=== PATIENT | male | born 1985 | race Caucasian/White ===

== ENCOUNTER 2016-12-11 12:57 | Emergency (ER) | payer OTHER, SELFPAY ==
--- NOTE | 2016-12-11 14:39 | EDDOCDS ---
Nurse's Notes [facility] Name: Amrit Nuñez Age: 30 yrs Sex: Male : 1985 Arrival Date: 12/11/2016 Time: 12:57 Bed Triage 3 Private MD: No Pcp Diagnosis: Low back pain Presentation: 12/11 13:03 Presenting complaint: Patient states: pain in low back - no known injury - ongoing pml since yesterday. Acute neurological deficits are not present. Mechanism of Injury: No Mechanism of Injury. Adult Sepsis Screening: The patient does not have new or worsening altered mentation. Patient's respiratory rate is less than 22. Systolic blood pressure is greater than 100. Patient has a qSOFA score of 0- Negative Sepsis Screen. Suicide/Homicide risk assessment- the patient denies having any suicidal and/or homicidal ideations and does not present with any other emotional, behavioral or mental health complaints. Status: Patient is not a facility service associate or dependent. Transition of care: patient was not received from another setting of care. 13:03 Acuity: VALERY Level 4 pml 13:03 Method Of Arrival: Walkin/Carried/Asstd pml Triage Assessment: 13:04 General: Appears uncomfortable. Pain: Location: right scapular area and right low back pml Pain currently is 7 out of 10 on a pain scale. HIV screening NA for this visit Offered previously. Musculoskeletal: Circulation, motion, and sensation intact. Historical: - Allergies: no known allergies; - Home Meds: 1. none - PMHx: none; - PSHx: Hernia repair; Tonsillectomy; Adenoidectomy; Knee surgery- Left; - Social history: Smoking status: Patient uses tobacco products, heavy tobacco smoker. No barriers to communication noted, The patient speaks fluent Hungarian, Speaks appropriately for age. - Family history: Not pertinent. - : The pt / caregiver states he / she is not on anticoagulants. Home medication list is obtained from the patient. - Exposure Risk Screening:: None identified. Screenin:38 Screening information is obtained from the patient. Fall risk: No risks identified. ml6 Assistance ADL's: requires no assistance with activities of daily living. Abuse/DV Screen: The patient / caregiver reports he/she is: not in a situation that causes fear, pain or injury. Nutritional screening: No deficits noted. Advance Directives: Currently, there is no health care proxy. home support is adequate. Assessment: 14:37 General: Appears in no apparent distress, comfortable. Pain: Denies pain. Neurological: ml6 No deficits noted. Level of Consciousness is awake, alert, Oriented to person, place, time. Cardiovascular: No deficits noted. Capillary refill < 3 seconds is brisk Heart tones S1 S2 present Edema is absent. Pulses are all present. Respiratory: No deficits noted. Airway is patent Respiratory effort is even, unlabored, Respiratory pattern is regular, symmetrical, Breath sounds are clear bilaterally. GI: No deficits noted. Abdomen is flat, non- distended Bowel sounds present X 4 quads. Vital Signs: 12:59 BP 156 / 82 RA Sitting (auto/reg); Pulse 88; Resp 18; Temp 98.0(O); Pulse Ox 100% on jrd R/A; Weight 108.86 kg (R); Height 5 ft. 10 in. (177.80 cm) (R); Pain 6/10; 14:37 ml6 12:59 Body Mass Index 34.44 (108.86 kg, 177.80 cm) jrd 14:37 patient refused ml6 Vitals: 12:59 Log In Time: December 11, 2016 at 12:45. jrd ED Course: 12:57 Patient visited by Bishnu Wagner PCA. jrd 12:57 Patient moved to Waiting jrd 12:58 No Pcp is Private Physician. jrd 13:00 Patient visited by Bishnu Wagner PCA. jrd 13:00 Patient moved to Pre RCE jrd 13:04 Triage Initiated pml 13:05 Patient visited by Debi Arevalo RN. pml 13:49 Patient moved to Triage 3 ar3 14:18 [facility] Payment Agreement was scanned into [employer] and attached to record. lg 14:21 Alexandru Traylor FNP is PHCP. ke 14:21 Patient visited by Alexandru Traylor FNP. ke 14:21 Patient visited by Alexandru Traylor FNP. ke 14:30 [facility] is Referral Physician. ke 14:38 The patient / caregiver is instructed regarding the plan of care and ED course. ml6 14:38 No IV's were initiated during this patient's visit. No procedures done that require ml6 assistance. Order Results: There are currently no results for this order. Outcome: 14:31 Discharge ordered by Provider. 14:38 Discharge Assessment: patient administered narcotics - yes. Pt provided with safe ml6 discharge. The following High Risk Discharge criteria are identified: None. Discharged to home ambulatory, with significant other. Condition: improved. Discharge instructions given to patient, Instructed on discharge instructions, follow up and referral plans. medication usage, Demonstrated understanding of instructions, medications, Pt was receptive of discharge instructions/ teaching. Prescriptions given X 1. No special radiology studies were completed. Property :Personal belongings accompany Pt. 14:39 Patient left the ED. ml6 Signatures: Brian Somers, Reg Reg lg Alexandru Traylor, RN ACLS RN ACLS Tom Martinez RN RN ml6 Chayito Mendoza, BRUSH CLEANER BRUSH CLEANER ar3 Debi Arevalo,RN RN pml Bishnu Wagner, BRUSH CLEANER BRUSH CLEANER jrd MTDD
--- NOTE | 2016-12-11 14:39 | EDDOCDS ---
Physician Documentation [facility] Name: Amrit Nuñez Age: 30 yrs Sex: Male : 1985 Arrival Date: 12/11/2016 Time: 12:57 Bed Triage 3 Private MD: No Pcp Disposition: 12/11/16 14:31 Discharged to Home/Self Care. Impression: Low back pain. - Condition is Stable. - Discharge Instructions: Back Pain, Adult. - Prescriptions for Ibuprofen 600 mg Oral Tablet - take 1 tablet by ORAL route every 6 hours As needed take with food; 30 tablet. Cyclobenzaprine 10 mg Oral Tablet - take 1 tablet by ORAL route 3 times per day As needed; 15 tablet. - Medication Reconciliation, Local Pharmacy Hours form. - [facility] up: [facility]; When: Call to arrange an appointment; Reason: Continuance of care. - Problem is new. - Symptoms are unchanged. - Notes: ice 20 min an hour limit bending and lifting Historical: - Allergies: no known allergies; - Home Meds: 1. none - PMHx: none; - PSHx: Hernia repair; Tonsillectomy; Adenoidectomy; Knee surgery- Left; - Social history: Smoking status: Patient uses tobacco products, heavy tobacco smoker. No barriers to communication noted, The patient speaks fluent Lao, Speaks appropriately for age. - Family history: Not pertinent. - : The pt / caregiver states he / she is not on anticoagulants. Home medication list is obtained from the patient. - Exposure Risk Screening:: None identified. Vital Signs: 12/11 12:59 BP 156 / 82 RA Sitting (auto/reg); Pulse 88; Resp 18; Temp 98.0(O); Pulse Ox 100% on jrd R/A; Weight 108.86 kg / 240 lbs (R); Height 5 ft. 10 in. (177.80 cm) (R); Pain 6/10; 14:37 ml6 12:59 Body Mass Index 34.44 (108.86 kg, 177.80 cm) jrd 14:37 patient refused ml6 MDM: 14:18 [facility] Payment Agreement was scanned into [employer] and attached to record. 14:23 Financial registration complete. Signatures: Brian Somers, Reg Reg Alexandru Traylor, BODY JOINER BODY JOINER Tom Martinez, RN RN ml6 Debi Arevalo RN RN pml The chart was reviewed and I authenticate all verbal orders and agree with the evaluation and treatment provided.Attachments: 14:18 [facility] Payment Agreement lg MTDD
--- NOTE | 2016-12-13 15:39 | EDDOCDS ---
Physician Documentation [facility] Name: Amrit Nuñez Age: 30 yrs Sex: Male : 1985 Arrival Date: 12/11/2016 Time: 12:57 Bed Triage 3 Private MD: No Pcp Disposition: 12/11/16 14:31 Discharged to Home/Self Care. Impression: Low back pain. - Condition is Stable. - Discharge Instructions: Back Pain, Adult. - Prescriptions for Ibuprofen 600 mg Oral Tablet - take 1 tablet by ORAL route every 6 hours As needed take with food; 30 tablet. Cyclobenzaprine 10 mg Oral Tablet - take 1 tablet by ORAL route 3 times per day As needed; 15 tablet. - Medication Reconciliation, Local Pharmacy Hours form. - Follow up: [facility]; When: Call to arrange an appointment; Reason: Continuance of care. - Problem is new. - Symptoms are unchanged. - Notes: ice 20 min an hour limit bending and lifting Historical: - Allergies: no known allergies; - Home Meds: 1. none - PMHx: none; - PSHx: Hernia repair; Tonsillectomy; Adenoidectomy; Knee surgery- Left; - Social history: Smoking status: Patient uses tobacco products, heavy tobacco smoker. No barriers to communication noted, The patient speaks fluent Russian, Speaks appropriately for age. - Family history: Not pertinent. - : The pt / caregiver states he / she is not on anticoagulants. Home medication list is obtained from the patient. - Exposure Risk Screening:: None identified. Vital Signs: 12/11 12:59 BP 156 / 82 RA Sitting (auto/reg); Pulse 88; Resp 18; Temp 98.0(O); Pulse Ox 100% on jrd R/A; Weight 108.86 kg / 240 lbs (R); Height 5 ft. 10 in. (177.80 cm) (R); Pain 6/10; 14:37 ml6 12:59 Body Mass Index 34.44 (108.86 kg, 177.80 cm) jrd 14:37 patient refused ml6 MDM: 14:18 [facility] Payment Agreement was scanned into [employer] and attached to record. lg 14:23 Financial registration complete. lg 12/12 10:45 T-Sheet-- Draft Copy was scanned into [employer] and attached to record. gb Signatures: Sherlyn Aleman, Reg Reg gb Brian Somers, Reg Reg lg Alexandru Traylor, RADIOLOGY MANAGER RADIOLOGY MANAGER Tom Martinez RN RN ml6 Debi Arevalo RN RN pml The chart was reviewed and I authenticate all verbal orders and agree with the evaluation and treatment provided.Attachments: 12/11 14:18 [facility] [place] Agreement lg 12/12 10:45 T-Sheet-- Draft Copy gb Chart Complete MTDD
--- NOTE | 2016-12-13 15:39 | EDDOCDS ---
Nurse's Notes [facility] Name: Amrit Nuñez Age: 30 yrs Sex: Male : 1985 Arrival Date: 12/11/2016 Time: 12:57 Bed Triage 3 Private MD: No Pcp Diagnosis: Low back pain Presentation: 12/11 13:03 Presenting complaint: Patient states: pain in low back - no known injury - ongoing pml since yesterday. Acute neurological deficits are not present. Mechanism of Injury: No Mechanism of Injury. Adult Sepsis Screening: The patient does not have new or worsening altered mentation. Patient's respiratory rate is less than 22. Systolic blood pressure is greater than 100. Patient has a qSOFA score of 0- Negative Sepsis Screen. Suicide/Homicide risk assessment- the patient denies having any suicidal and/or homicidal ideations and does not present with any other emotional, behavioral or mental health complaints. Status: Patient is not a senior customer service representative or dependent. Transition of care: patient was not received from another setting of care. 13:03 Acuity: VALERY Level 4 pml 13:03 Method Of Arrival: Walkin/Carried/Asstd pml Triage Assessment: 13:04 General: Appears uncomfortable. Pain: Location: right scapular area and right low back pml Pain currently is 7 out of 10 on a pain scale. HIV screening NA for this visit Offered previously. Musculoskeletal: Circulation, motion, and sensation intact. Historical: - Allergies: no known allergies; - Home Meds: 1. none - PMHx: none; - PSHx: Hernia repair; Tonsillectomy; Adenoidectomy; Knee surgery- Left; - Social history: Smoking status: Patient uses tobacco products, heavy tobacco smoker. No barriers to communication noted, The patient speaks fluent Bulgarian, Speaks appropriately for age. - Family history: Not pertinent. - : The pt / caregiver states he / she is not on anticoagulants. Home medication list is obtained from the patient. - Exposure Risk Screening:: None identified. Screenin:38 Screening information is obtained from the patient. Fall risk: No risks identified. ml6 Assistance ADL's: requires no assistance with activities of daily living. Abuse/DV Screen: The patient / caregiver reports he/she is: not in a situation that causes fear, pain or injury. Nutritional screening: No deficits noted. Advance Directives: Currently, there is no health care proxy. home support is adequate. Assessment: 14:37 General: Appears in no apparent distress, comfortable. Pain: Denies pain. Neurological: ml6 No deficits noted. Level of Consciousness is awake, alert, Oriented to person, place, time. Cardiovascular: No deficits noted. Capillary refill < 3 seconds is brisk Heart tones S1 S2 present Edema is absent. Pulses are all present. Respiratory: No deficits noted. Airway is patent Respiratory effort is even, unlabored, Respiratory pattern is regular, symmetrical, Breath sounds are clear bilaterally. GI: No deficits noted. Abdomen is flat, non- distended Bowel sounds present X 4 quads. Vital Signs: 12:59 BP 156 / 82 RA Sitting (auto/reg); Pulse 88; Resp 18; Temp 98.0(O); Pulse Ox 100% on jrd R/A; Weight 108.86 kg (R); Height 5 ft. 10 in. (177.80 cm) (R); Pain 6/10; 14:37 ml6 12:59 Body Mass Index 34.44 (108.86 kg, 177.80 cm) jrd 14:37 patient refused ml6 Vitals: 12:59 Log In Time: December 11, 2016 at 12:45. jrd ED Course: 12:57 Patient visited by Bishnu Wagner PCA. jrd 12:57 Patient moved to Waiting jrd 12:58 No Pcp is Private Physician. jrd 13:00 Patient visited by Bishnu Wagner PCA. jrd 13:00 Patient moved to Pre RCE jrd 13:04 Triage Initiated pml 13:05 Patient visited by Debi Arevalo RN. pml 13:49 Patient moved to Triage 3 ar3 14:18 [facility] Payment Agreement was scanned into [employer] and attached to record. lg 14:21 Alexandru Traylor FNP is PHCP. ke 14:21 Patient visited by Alexandru Traylor FNP. ke 14:21 Patient visited by Alexandru Traylor FNP. ke 14:30 [facility] is Referral Physician. ke 14:38 The patient / caregiver is instructed regarding the plan of care and ED course. ml6 14:38 No IV's were initiated during this patient's visit. No procedures done that require ml6 assistance. 12/12 10:45 T-Sheet-- Draft Copy was scanned into [employer] and attached to record. Order Results: There are currently no results for this order. Outcome: 12/11 14:31 Discharge ordered by Provider. luz maria 14:38 Discharge Assessment: patient administered narcotics - yes. Pt provided with safe ml6 discharge. The following High Risk Discharge criteria are identified: None. Discharged to home ambulatory, with significant other. Condition: improved. Discharge instructions given to patient, Instructed on discharge instructions, follow up and referral plans. medication usage, Demonstrated understanding of instructions, medications, Pt was receptive of discharge instructions/ teaching. Prescriptions given X 1. No special radiology studies were completed. Property :Personal belongings accompany Pt. 14:39 Patient left the ED. ml6 Signatures: Sherlyn Aleman, Reg Reg gb Brian Somers, Reg Reg lg Alexandru Traylor, DUPLICATING MACHINE SERVICER DUPLICATING MACHINE SERVICER Tom Martinez RN RN ml6 Chayito Mendoza, ABALONE SHELLER ABALONE SHELLER ar3 Debi Arevalo RN RN pml Donoghue, Joseph, ABALONE SHELLER ABALONE SHELLER jrd Chart Complete ALEJANDRINA
--- NOTE | 2016-12-13 15:39 | EDDOCDS ---
Physician Documentation [facility] Name: Amrit Nuñez Age: 30 yrs Sex: Male : 1985 Arrival Date: 12/11/2016 Time: 12:57 Bed Triage 3 Private MD: No Pcp Disposition: 12/11/16 14:31 Discharged to Home/Self Care. Impression: Low back pain. - Condition is Stable. - Discharge Instructions: Back Pain, Adult. - Prescriptions for Ibuprofen 600 mg Oral Tablet - take 1 tablet by ORAL route every 6 hours As needed take with food; 30 tablet. Cyclobenzaprine 10 mg Oral Tablet - take 1 tablet by ORAL route 3 times per day As needed; 15 tablet. - Medication Reconciliation, Local Pharmacy Hours form. - Follow up: [facility]; When: Call to arrange an appointment; Reason: Continuance of care. - Problem is new. - Symptoms are unchanged. - Notes: ice 20 min an hour limit bending and lifting Historical: - Allergies: no known allergies; - Home Meds: 1. none - PMHx: none; - PSHx: Hernia repair; Tonsillectomy; Adenoidectomy; Knee surgery- Left; - Social history: Smoking status: Patient uses tobacco products, heavy tobacco smoker. No barriers to communication noted, The patient speaks fluent Kosovan, Speaks appropriately for age. - Family history: Not pertinent. - : The pt / caregiver states he / she is not on anticoagulants. Home medication list is obtained from the patient. - Exposure Risk Screening:: None identified. Vital Signs: 12/11 12:59 BP 156 / 82 RA Sitting (auto/reg); Pulse 88; Resp 18; Temp 98.0(O); Pulse Ox 100% on jrd R/A; Weight 108.86 kg / 240 lbs (R); Height 5 ft. 10 in. (177.80 cm) (R); Pain 6/10; 14:37 ml6 12:59 Body Mass Index 34.44 (108.86 kg, 177.80 cm) jrd 14:37 patient refused ml6 MDM: 14:18 [facility] Payment Agreement was scanned into [employer] and attached to record. lg 14:23 Financial registration complete. lg 12/12 10:45 T-Sheet-- Draft Copy was scanned into [employer] and attached to record. gb Signatures: Sherlyn Aleman, Reg Reg gb Brian Somers, Reg Reg lg Alexandru Traylor, STAFF AIR TACTICAL OFFICER STAFF AIR TACTICAL OFFICER Tom Martinez RN RN ml6 Debi Arevalo RN RN pml The chart was reviewed and I authenticate all verbal orders and agree with the evaluation and treatment provided.Attachments: 12/11 14:18 [facility] [place] Agreement lg 12/12 10:45 T-Sheet-- Draft Copy gb Chart Complete MTDD
== END 2016-12-11 14:39 | disposition home or self-care (01) ==
LOC: M ED 12:57
DX: M54.5 Low back pain (principal); Z72.0 Tobacco use

== ENCOUNTER 2017-11-17 13:31 | Emergency (ER) | payer OTHER ==
[2017-11-17] MEDS: BUPIVACAINE HCL 0.5% 10 ML VIAL SC (15:57)
[2017-11-17] MEDS: LIDOCAINE 2% MDV 20 ML VIAL SC (15:57)
[2017-11-17] MEDS: ADACEL/BOOSTRIX VACCINE (DIPHTH/PERTUSS/ACELL/TETANUS)0.5ML SYR (90715) IM (15:59)
[2017-11-17] MEDS ORDERED: BACITRACIN OINT 30GM TOP (16:15)
[2017-11-17] MEDS ORDERED: NEOSPORIN OINT 0.9 GM PKT (FLOOR STOCK) As Ordered (16:27)
== END 2017-11-17 16:38 | disposition home or self-care (01) ==
LOC: M ED 13:31
DX: S61.211A Laceration without foreign body of left index finger without damage to nail, initial encounter (principal); W27.0XXA Contact with workbench tool, initial encounter; Y92.89 Other specified places as the place of occurrence of the external cause; F17.210 Nicotine dependence, cigarettes, uncomplicated
CPT/HCPCS: 90715

== ENCOUNTER → 2019-10-27 | Outpatient (REF) | payer OTHER, BC ==
[~2019-10-27] MED LIST: BACI50OI EXT; NAPR-885 PO; TYLE325T5 PO
== END ==
LOC: M SMT 13:40
PROVIDERS: ATTEND Urology
DX: Z30.09 Encounter for other general counseling and advice on contraception (principal)

== ENCOUNTER → 2019-12-18 | Outpatient (REF) | payer BC ==
[2019-12-18 12:37] LABS: SEMEN APPEARANCE OPAQUE (OPAQUE); SEMEN VISCOSITY LIQUID (LIQUID); WBC CONCENTRATION <=1 M/ml (<=1 M/ml)
== END ==
LOC: M LAB REF 11:39
PROVIDERS: ATTEND Urology
DX: Z98.52 Vasectomy status (principal); Z30.09 Encounter for other general counseling and advice on contraception

== ENCOUNTER 2022-06-26 23:15 | Emergency (ER) | payer BC, OTHER ==
[~2022-06-26] VITALS: Ht 177.8 cm; Wt 113.6 kg
[2022-06-27] MEDS ORDERED: INDOMETHACIN 25 MG CAP PO ONE (07:25)
[2022-06-27] MEDS ORDERED: INDO50CA91 PO (07:28)
[2022-06-27 08:13] VITALS: BP 150/80
== END 2022-06-27 08:18 | disposition home or self-care (01) ==
LOC: M ED 23:15
DX: M76.52 Patellar tendinitis, left knee (principal)

== ENCOUNTER 2022-07-13 20:22 | Emergency (ER) | payer OTHER ==
[~2022-07-13] VITALS: Ht 177.8 cm; Wt 116.2 kg
[~2022-07-13 20:22] MED LIST changes: +INDO50CA91 PO
[2022-07-13] MEDS ORDERED: LIDOCAINE 2% MDV 20ML VIAL SC ONE (22:10)
[2022-07-13] MEDS ORDERED: BOOSTRIX/ADACEL VACCINE (DIPHTH/PERTUSS/ACELL/TETANUS) 0.5ML SYR IM ONE (22:10)
[2022-07-13] MEDS ORDERED: CEPHALEXIN 500 MG CAP PO ONE (22:30)
[2022-07-13] MEDS ORDERED: CEPH500C PO (22:39)
[2022-07-13 22:51] VITALS: BP 128/80
== END 2022-07-13 22:52 | disposition home or self-care (01) ==
LOC: M ED 20:22
DX: S51.011A Laceration without foreign body of right elbow, initial encounter (principal); X58.XXXA Exposure to other specified factors, initial encounter; Y93.89 Activity, other specified; Y99.0 Civilian activity done for income or pay; Z87.891 Personal history of nicotine dependence

== ENCOUNTER 2023-11-06 07:39 | Day surgery (SDC) | payer OTHER ==
[~2023-11-06] VITALS: Ht 177.8 cm; Wt 115.8 kg
[~2023-11-06 07:39] MED LIST changes: +BSS IRR 500ML/OMIDRIA 4ML IRR BAG (OR ONLY) As Ordered ONE; +CEFUROXIME 1MG/0.1ML INTRACAMERAL INJ As Ordered ONE; +CEPH500C PO; +LIDOCAINE 1% SDV 5ML VIAL As Ordered ONE; +MIDAZOLAM INJ 2MG/2ML VIAL As Ordered ONE; +PROPARACAINE 0.5% OPHTH SOL 15ML OS ONE; +fentaNYL 100 MCG/2 ML INJECTION As Ordered ONE
[2023-11-06] MEDS: CYCLOPENTOLATE 1% OPHTH SOLN 2ML BTL OS SCH ×2 (08:16→08:20)
[2023-11-06] MEDS: PHENYLEPHRINE 2.5% OPHTH SOL 2ML OS SCH ×2 (08:16→08:19)
[2023-11-06] MEDS: OFLOXACIN 0.3 % (OCUFLOX) OPTH SOL 5ML OS SCH ×2 (08:16→08:19)
[2023-11-06] MEDS: TROPICAMIDE 1% OPHTH SOLN 15ML OS SCH ×2 (08:16→08:19)
[2023-11-06] MEDS ORDERED: TRYPAN BLUE 0.06 % 2.25 ML OPHTH SYR (VISIONBLUE) As Ordered ONE (09:34)
[2023-11-06 09:55] VITALS: BP 151/81; TEMP 98.4; O2SAT 94
== END 2023-11-06 10:25 | disposition home or self-care (01) ==
LOC: M SDC 07:39
PROVIDERS: ATTEND Ophthalmology
DX: H25.12 Age-related nuclear cataract, left eye (principal)
CPT/HCPCS: 66984; J0697; J1097; J2250; J3010; V2632

== ENCOUNTER → 2024-08-08 | Outpatient (REF) | payer OTHER ==
[~2024-08-08] MED LIST changes: -BSS IRR 500ML/OMIDRIA 4ML IRR BAG (OR ONLY) As Ordered ONE; -CEFUROXIME 1MG/0.1ML INTRACAMERAL INJ As Ordered ONE; -LIDOCAINE 1% SDV 5ML VIAL As Ordered ONE; -MIDAZOLAM INJ 2MG/2ML VIAL As Ordered ONE; -PROPARACAINE 0.5% OPHTH SOL 15ML OS ONE; -fentaNYL 100 MCG/2 ML INJECTION As Ordered ONE
[2024-08-08 13:16] LABS: ALBUMIN 3.7 G/DL (3.2-5.2); ALKALINE PHOSPHATASE 100 U/L (46-116); ALT/SGPT 30 U/L (7.0-40); AST/SGOT 17 U/L (<34); BILIRUBIN,TOTAL 0.4 MG/DL (0.3-1.2); BLOOD UREA NITROGEN 8 MG/DL (9-23); CALCIUM LEVEL 9.8 MG/DL (8.5-10.1); CARBON DIOXIDE LEVEL 28 MMOL/L (20-31); CHLORIDE LEVEL 107 MMOL/L (98-107); CHOLESTEROL LEVEL 162 MG/DL (<200); CHOLESTEROL RISK RATIO 5.24 (<5); CREATININE FOR GFR 0.64 MG/DL (0.70-1.30); GLOMERULAR FILTRATION RATE > 60.0 (>60); GLUCOSE, FASTING 97 MG/DL (60-100); HDL CHOLESTEROL 30.9 MG/DL (>40); LDL CHOLESTEROL 107.9 MG/DL (<100); NON-HDL-C 131.1 MG/DL; POTASSIUM SERUM 4.5 MMOL/L (3.5-5.1); SODIUM LEVEL 136 MMOL/L (136-145); TOTAL PROTEIN 7.4 G/DL (5.7-8.2); TRIGLYCERIDES LEVEL 116 MG/DL (<150)
[2024-08-08 13:18] LABS: THYROID STIMULATING HORMONE 0.008 uIU/ML (0.55-4.78)
== END ==
LOC: M LAB REF 12:07
PROVIDERS: ATTEND Family Medicine Addiction Medicine
DX: R03.0 Elevated blood-pressure reading, without diagnosis of hypertension (principal)

== ENCOUNTER → 2024-08-15 | Outpatient (REF) | payer OTHER ==
[2024-08-15 19:33] LABS: HEMATOCRIT 43.6 % (42.0-52.0); HEMOGLOBIN 14.8 g/dl (13.5-17.5); MEAN CORPUSCULAR HEMOGLOBIN 28.3 pg (27.0-33.0); MEAN CORPUSCULAR HGB CONC 33.9 g/dl (32.0-36.5); MEAN CORPUSCULAR VOLUME 83.4 fl (80.0-96.0); PLATELET COUNT, AUTOMATED 276 10^3/uL (150-450); RED BLOOD COUNT 5.23 10^6/uL (4.30-6.10); WHITE BLOOD COUNT 8.3 10^3/uL (4.0-10.0)
[2024-08-15 20:02] LABS: FREE T4 2.5 NG/DL (0.89-1.76); THYROID STIMULATING HORMONE 0.008 uIU/ML (0.55-4.78)
== END ==
LOC: M LAB REF 16:35
PROVIDERS: ATTEND Family Medicine Addiction Medicine
DX: R94.6 Abnormal results of thyroid function studies (principal)

== ENCOUNTER → 2024-09-22 | Outpatient (CLI) | payer OTHER ==
[2024-09-22 13:29] LABS: FREE T4 2.69 NG/DL (0.89-1.76)
[2024-09-22 13:30] LABS: THYROID STIMULATING HORMONE 0.008 uIU/ML (0.55-4.78)
[2024-09-22 13:32] LABS: TOTAL T3 259.6 NG/DL (60.0-181.0)
[2024-09-22 13:35] LABS: THYROID PEROXIDASE ANTIBODY > 1300.0 U/ML (<60.0)
== END ==
LOC: M WUC 10:56
PROVIDERS: ATTEND Nurse Practitioner Family
DX: E05.00 Thyrotoxicosis with diffuse goiter without thyrotoxic crisis or storm (principal)

== ENCOUNTER → 2024-11-03 | Outpatient (CLI) | payer OTHER | LOC: M RAD 13:57 | PROVIDERS: ATTEND Nurse Practitioner Family | DX: E05.00 Thyrotoxicosis with diffuse goiter without thyrotoxic crisis or storm (principal) | CPT/HCPCS: 78012; A9516 ==

== ENCOUNTER → 2024-12-11 | Outpatient (CLI) | payer OTHER ==
[2024-12-11 20:20] LABS: FREE T4 2.45 NG/DL (0.89-1.76); THYROID STIMULATING HORMONE < 0.010 uIU/ML (0.55-4.78)
[2024-12-11 23:48] LABS: TOTAL T3 254.2 NG/DL (60.0-181.0)
== END ==
LOC: M WUC 15:00
PROVIDERS: ATTEND Internal Medicine Endocrinology, Diabetes & Metabolism
DX: E05.00 Thyrotoxicosis with diffuse goiter without thyrotoxic crisis or storm (principal)

== ENCOUNTER → 2024-12-23 | Outpatient (CLI) | payer OTHER | LOC: M RAD 10:12 | PROVIDERS: ATTEND Nurse Practitioner Family | DX: E05.00 Thyrotoxicosis with diffuse goiter without thyrotoxic crisis or storm (principal) ==

== ENCOUNTER → 2024-12-25 | Outpatient (CLI) | payer OTHER | LOC: M RAD 08:40 | PROVIDERS: ATTEND Internal Medicine Endocrinology, Diabetes & Metabolism | DX: E05.00 Thyrotoxicosis with diffuse goiter without thyrotoxic crisis or storm (principal) ==

== ENCOUNTER → 2025-02-16 | Outpatient (REF) | payer OTHER ==
[2025-02-16 13:52] LABS: FREE T4 0.43 NG/DL (0.89-1.76); THYROID STIMULATING HORMONE 2.999 uIU/ML (0.55-4.78)
== END ==
LOC: M LABWUC 13:07
PROVIDERS: ATTEND Nurse Practitioner Family
DX: E05.00 Thyrotoxicosis with diffuse goiter without thyrotoxic crisis or storm (principal)

== ENCOUNTER → 2025-04-23 | Outpatient (REF) | payer OTHER ==
[2025-04-23 18:38] LABS: FREE T4 0.81 NG/DL (0.89-1.76)
== END ==
LOC: M LABWUC 17:39
PROVIDERS: ATTEND Nurse Practitioner Family
DX: E05.00 Thyrotoxicosis with diffuse goiter without thyrotoxic crisis or storm (principal)

== ENCOUNTER → 2025-06-29 | Outpatient (CLI) | payer OTHER ==
[2025-06-29 13:57] LABS: FREE T4 1.32 NG/DL (0.89-1.76)
== END ==
LOC: M WUC 09:01
PROVIDERS: ATTEND Nurse Practitioner Family
DX: E89.0 Postprocedural hypothyroidism (principal)

== ENCOUNTER → 2025-09-28 | Outpatient (REF) | payer OTHER ==
[2025-09-28 15:31] LABS: FREE T4 1.53 NG/DL (0.89-1.76)
== END ==
LOC: M LAB REF 14:54 → M LABWUC 14:54
PROVIDERS: ATTEND Nurse Practitioner Family
DX: E89.0 Postprocedural hypothyroidism (principal)